=== PATIENT | male | born 1940 | race Native Hawaiian/Other Pacific Islander ===

== ENCOUNTER 2016-12-27 18:00 | Observation (INO) | payer OTHER ==
[~2016-12-27] VITALS: Ht 188 cm; Wt 78.6 kg
[~2016-12-27 18:00] MED LIST: ASPIRIN325 M1 OR; CETI10TA PO; CLOP75TA2 PO; DILTIAZEM240 M1 PO; DIPY200C PO; LISI5TAB10 PO; LOPRESSOR100 MG PO; METO25TA4 OR; MICRO-K10 MEQ OR; MIRTAZAPINE7.5 MG PO; NAMENDA10 MG OR; NITROSTAT0.4 MG SL; PANT40TA PO; PHENYTOIN EX100 MG OR; RISP0.5T2 PO; RISP1TAB PO; RISP2TAB2 PO; SODIUM BICAR650 MG OR; SPIRONOLACT25 MG PO
[2016-12-27 20:00] VITALS: BP 109/72; TEMP 97.9
[2016-12-27 20:18] LABS: PLATELET COUNT 263 K/uL (142-355)
[2016-12-27 20:50] LABS: POTASSIUM 4.3 mmol/L (3.6-5.2)
[2016-12-28] MEDS ORDERED: SOD CHLORIDE1 GM PO (01:10)
--- NOTE | 2016-12-28 01:13 | NUR ---
12/27/2016 1935 PT PLACED IN ROOM ASSESSMENT COMPLETED. IV ACCESSED AND LABS DRAWN DISCUSSED ORDERS AND PLAN WITH PT. PT VERBALIZED UNDERSTANDING
[2016-12-28 01:14] VITALS: BP 106/56; TEMP 97.9
[2016-12-28 01:25] VITALS: BP 139/83; TEMP 98.4; Ht 188 cm; Wt 78.6 kg
[2016-12-28 04:00] VITALS: BP 134/63; TEMP 97.5
[2016-12-28 07:01] LABS: PLATELET COUNT 231 K/uL (142-355)
[2016-12-28 07:14] LABS: POTASSIUM 3.9 mmol/L (3.6-5.2)
[2016-12-28 08:21] VITALS: BP 135/72; TEMP 97.5
[2016-12-28 12:00] VITALS: BP 145/86; TEMP 98
--- NOTE | 2016-12-28 16:58 | NUR ---
IV D/C'd. DISCHARGE INSTRUCTIONS SIGNED AND GIVEN.
== END 2016-12-28 16:58 | disposition home or self-care (01) ==
LOC: MED/SURG 18:00
PROVIDERS: ADMIT Family Medicine
DX: E87.1 Hypo-osmolality and hyponatremia (principal); R53.81 Other malaise; M62.81 Muscle weakness (generalized)
CPT/HCPCS: 36415; 36591; 80053; 80307; 80320; 81000; 82607; 83735; 85027; 87040; 96360; 96361; 99220; G0378; G0379; G0479; J3411; J3475; J3490

== ENCOUNTER 2017-03-30 11:30 | Outpatient (CLI) | payer OTHER ==
[~2017-03-30 11:30] MED LIST changes: +SOD CHLORIDE1 GM PO
== END 2017-03-30 21:10 | disposition home or self-care (01) ==
LOC: LABW 11:30
PROVIDERS: Nurse Practitioner Adult Health
DX: E78.2 Mixed hyperlipidemia (principal); Z79.899 Other long term (current) drug therapy; Z51.81 Encounter for therapeutic drug level monitoring
CPT/HCPCS: 36415; 80061; 80076